=== PATIENT | female | born 1995 | race Caucasian/White ===

== ENCOUNTER 2019-10-25 18:15 | Inpatient (IN) | payer BC ==
[~2019-10-25] VITALS: Ht 170.2 cm; Wt 112.3 kg
[2019-10-25] VITALS (21 sets, daily range): BP systolic 100–122; BP diastolic 58–83; PULSE 74–122; TEMP 98.4
--- NOTE | 2019-10-25 18:25 | NUR ---
Ambulatory to unit for labor induction, accompanied by spouse. Oriented to room, monitor, plan of care. Questions invited and answered.
[2019-10-25 19:16] LABS: BASO % 0.3 % (0.0-2.0); EOS % 0.2 % (0-4.0); GRAN # 7.3 (1.4-6.5); GRAN % 74.8 % (42.2-75.2); HEMOGLOBIN 11.2 g/dl (12.5-16.0); LYMPH # 1.4 (1.2-3.4); MEAN CELL VOLUME 85 fl (80.0-100.0); MEAN CORPUSCULAR HEMOGLOBIN 29 pg (27.0-31.0); MEAN CORPUSCULAR HGB CONC 34 g/dl (33.0-37.0); MONO % 9.8 % (1.7-9.3); PLATELET COUNT 333 K/mm3 (130-400); RED BLOOD COUNT 3.89 M/mm3 (4.10-5.30); REDCELL DISTRIBUTION WIDTH-CV 13.6 % (11.5-14.5)
[2019-10-25 19:19] LABS: HEMATOCRIT 33.1 % (37.0-47.0)
[2019-10-25 19:27] LABS: ALBUMIN 3.7 gm/dL (3.5-5.0); BILIRUBIN,TOTAL 1.4 mg/dL (0.0-1.0); CALCIUM 9.2 mg/dL (8.4-10.2); CREATININE, serum 0.54 (0.52-1.25); POTASSIUM 3.5 mmol/L (3.4-5.0); TOTAL PROTEIN 7.4 gm/dL (6.4-8.2)
[2019-10-25] MEDS ORDERED: PRENATAL TABLET PO (20:27)
[2019-10-25] MEDS ORDERED: VTAMINC250TA (20:28)
[2019-10-25] MEDS ORDERED: VITAL-D1 TAB PO (20:28)
[2019-10-25] MEDS ORDERED: COLACE 100100 MG/CAP PO (20:29)
[2019-10-25] MEDS ORDERED: VITAMIN A10k (20:30)
[2019-10-26] VITALS (62 sets, daily range): BP systolic 89–137; BP diastolic 51–101; PULSE 54–123; TEMP 97.6–97.7
--- NOTE | 2019-10-26 02:15 | NUR ---
Pt sleeping, changes position often, Difficult to maintain tracings.
--- NOTE | 2019-10-26 03:00 | NUR ---
LR to bolus rate for decreased urine output.
--- NOTE | 2019-10-26 03:25 | NUR ---
Up to bathroom, ua obtained.
[2019-10-26 04:01] LABS: COLLECTION METHOD CLEAN CATCH
[2019-10-26 04:09] LABS: MUCOUS Present /lpf; PH 5 (5-8); SQUAMOUS EPITHELIAL 0-2 /hpf; URINE APPEARANCE Hazy; URINE BACTERIA Rare /hpf; URINE BILIRUBIN Positive (NEGATIVE); URINE BLOOD 2+ (NEGATIVE); URINE COLOR Amber; URINE GLUCOSE Negative (NEGATIVE); URINE KETONE 2+ (NEGATIVE); URINE LEUKOCYTE ESTERASE Negative (NEGATIVE); URINE NITRATE Negative (NEGATIVE); URINE PROTEIN(semi-quant) 1+ (NEGATIVE); URINE UROBILINOGEN >=4.0 mg/dL (NEGATIVE); URINE WBC 0-2 /hpf
--- NOTE | 2019-10-26 05:10 | NUR ---
Pt sleeping, changes positon frequently, difficult to maintain tracings.
[2019-10-26 08:56] LABS: BASO % 0.4 % (0.0-2.0); EOS % 0.3 % (0-4.0); GRAN # 5.9 (1.4-6.5); GRAN % 73.9 % (42.2-75.2); HEMOGLOBIN 10.6 g/dl (12.5-16.0); LYMPH # 1.3 (1.2-3.4); LYMPH % 16.5 % (20.0-51.0); MEAN CELL VOLUME 86 fl (80.0-100.0); MEAN CORPUSCULAR HEMOGLOBIN 29 pg (27.0-31.0); MEAN CORPUSCULAR HGB CONC 33 g/dl (33.0-37.0); MEAN PLATELET VOLUME 10.8 fl (7.4-10.4); MONO # 0.6 (0.1-0.6); PLATELET COUNT 285 K/mm3 (130-400); RED BLOOD COUNT 3.68 M/mm3 (4.10-5.30); REDCELL DISTRIBUTION WIDTH-CV 13.9 % (11.5-14.5)
[2019-10-26 08:57] LABS: HEMATOCRIT 31.8 % (37.0-47.0)
[2019-10-26 09:09] LABS: ALBUMIN 3.3 gm/dL (3.5-5.0); BILIRUBIN,TOTAL 1.4 mg/dL (0.0-1.0); CALCIUM 8.9 mg/dL (8.4-10.2); CREATININE, serum 0.45 (0.52-1.25); POTASSIUM 3.9 mmol/L (3.4-5.0); TOTAL PROTEIN 6.8 gm/dL (6.4-8.2)
--- NOTE | 2019-10-26 11:18 | NUR ---
Pt requesting epidural. Madhavi Block, BEATER TENDER notified.
--- NOTE | 2019-10-26 12:43 | NUR ---
1128 - L MANNY Block to pt bedside. Pt sitting in upright position on side of bed. EFM tracing maternal heart rate at 1129. Test dose given at 1141. Pt repositioned to LL with peanut ball. EFM tracing maternal heart rate at 1146. Early decelerations noted, audible at pt bedside. SVE at this time 5/80/-2. Difficulty tracing FHR and contractions due to maternal position. Repositioned to RL position with peanut ball at 1210. Dr. Donohue updated at 1230
--- NOTE | 2019-10-26 12:56 | NUR ---
SVE /-[address] Donohue. FSE placed to improve FHT tracing.
--- NOTE | 2019-10-26 16:57 | NUR ---
1523 - SVE AL/100/-1. Dr. Donohue notified, Svetlana Acevedo RN of nursery notified. 1534 - Dr. Donohue to bedside. SVE per physician AL/100/0. Pt placed in LL position with leg in stirrup. 1542 - Pt placed in RL position with leg in stirrup. 1553 - Dr. Donohue to pt bedside. Per physician, SVE 10100/+1. Pt repositioned supine with legs in stirrups. Magana removed. Pt and room prepped for delivery. Svetlana Jennings RN of nursery to bedside. 1554 - Pt pushing with physician with contraction. 1559 - Viable male delivered spontaneously by Dr. Donohue and placed on mother's abdomen. Care of transferred to Svetlana Jennings RN of nursery. 1604 - Spontaneous delivery of placenta by Dr. Donohue. Pitocin started at 333mu/ml per protocol. Bilateral periurethral repairs made by Dr. Donohue. Pericare provided, pt repositioned for comfort. Ice pack placed on perineum.
--- NOTE | 2019-10-26 18:04 | NUR ---
Pt requested to go to bathroom at 1750. Pt ambulated without difficulty to toilet and voided. Pericare assisted, clean pad and panties placed. New gown provided. Pt ambulated without assistance to room, oriented to room. Pt then ambulated to nursery to see baby.
[2019-10-27 01:10] VITALS: BP 127/83; PULSE 78; TEMP 98.1
[2019-10-27 05:30] VITALS: BP 112/67; PULSE 79; TEMP 98.3
[2019-10-27 08:03] LABS: MEAN CELL VOLUME 86 fl (80.0-100.0); MEAN CORPUSCULAR HGB CONC 33 g/dl (33.0-37.0); MEAN PLATELET VOLUME 10.9 fl (7.4-10.4); PLATELET COUNT 256 K/mm3 (130-400); RED BLOOD COUNT 3.31 M/mm3 (4.10-5.30); REDCELL DISTRIBUTION WIDTH-CV 13.8 % (11.5-14.5)
[2019-10-27 08:13] LABS: HEMATOCRIT 28.6 % (37.0-47.0); HEMOGLOBIN 9.5 g/dl (12.5-16.0); MEAN CORPUSCULAR HEMOGLOBIN 29 pg (27.0-31.0)
[2019-10-27 08:19] LABS: ALBUMIN 2.9 gm/dL (3.5-5.0); BILIRUBIN,TOTAL 1.1 mg/dL (0.0-1.0); CALCIUM 8.6 mg/dL (8.4-10.2); CREATININE, serum 0.55 (0.52-1.25); POTASSIUM 3.8 mmol/L (3.4-5.0); TOTAL PROTEIN 5.9 gm/dL (6.4-8.2)
[2019-10-27 08:30] VITALS: BP 126/87; PULSE 80; TEMP 98
--- NOTE | 2019-10-27 10:02 | NUR ---
Initial visit; Parents thanked [employer] Representative for offering congratulations and God's blessings for the of their son. [employer] Representative thanked family for choosing [facility].
[2019-10-27 16:34] VITALS: BP 111/67; PULSE 83; TEMP 98.1
[2019-10-27 21:10] VITALS: BP 103/57; PULSE 77; TEMP 97.8
[2019-10-28 07:21] LABS: BASO % 0.3 % (0.0-2.0); EOS # 0.1 (0.0-0.7); EOS % 1.6 % (0-4.0); GRAN # 4.6 (1.4-6.5); LYMPH # 1.7 (1.2-3.4); LYMPH % 24.1 % (20.0-51.0); MEAN CELL VOLUME 89 fl (80.0-100.0); MEAN CORPUSCULAR HGB CONC 32 g/dl (33.0-37.0); MONO # 0.4 (0.1-0.6); PLATELET COUNT 270 K/mm3 (130-400); RED BLOOD COUNT 3.06 M/mm3 (4.10-5.30)
[2019-10-28 07:26] LABS: ALBUMIN 2.8 gm/dL (3.5-5.0); BILIRUBIN,TOTAL 0.6 mg/dL (0.0-1.0); CALCIUM 8.5 mg/dL (8.4-10.2); CREATININE, serum 0.55 (0.52-1.25); HEMATOCRIT 27.2 % (37.0-47.0); HEMOGLOBIN 8.8 g/dl (12.5-16.0); MEAN CORPUSCULAR HEMOGLOBIN 29 pg (27.0-31.0); POTASSIUM 4.1 mmol/L (3.4-5.0); TOTAL PROTEIN 5.9 gm/dL (6.4-8.2)
[2019-10-28 08:00] VITALS: BP 113/56; PULSE 99; TEMP 97.4
[2019-10-28] MEDS ORDERED: IBU800 M1 PO (08:01)
--- NOTE | 2019-10-28 11:55 | NUR ---
Patient given discharge instructions. Denies questions. Escorted off unit by this RN.
== END 2019-10-28 11:55 | disposition home or self-care (01) | DRG 807 ==
LOC: LDR 18:15 → OB 10-26 18:08
PROVIDERS: Obstetrics & Gynecology; Student in an Organized Health Care Education/Training Program; ADMIT Obstetrics & Gynecology
PROC: 10E0XZZ Delivery of Products of Conception, External Approach (ICD-10-PCS; principal; 2019-10-26)
PROC: 0UQMXZZ Repair Vulva, External Approach (ICD-10-PCS; 2019-10-26)
PROC: 10907ZC Drainage of Amniotic Fluid, Therapeutic from Products of Conception, Via Natural or Artificial Opening (ICD-10-PCS; 2019-10-26)
PROC: 3E033VJ Introduction of Other Hormone into Peripheral Vein, Percutaneous Approach (ICD-10-PCS; 2019-10-26)
DX: O14.03 Mild to moderate pre-eclampsia, third trimester (principal); Z37.0 Single live birth; O71.82 Other specified trauma to perineum and vulva; O99.62 Diseases of the digestive system complicating childbirth; K21.9 Gastro-esophageal reflux disease without esophagitis; O90.81 Anemia of the puerperium; D64.9 Anemia, unspecified; Z3A.36 36 weeks gestation of pregnancy
CPT/HCPCS: J2540; J2590; J7120

== ENCOUNTER → 2023-10-15 | Outpatient (CLI) | payer BC ==
[~2023-10-15] MED LIST: COLACE 100100 MG/CAP PO; IBU800 M1 PO; PRENATAL TABLET PO; VITAL-D1 TAB PO; VITAMIN A10k; VTAMINC250TA
== END ==
LOC: MC.RAD 07:00
DX: N63.22 Unspecified lump in the left breast, upper inner quadrant (principal)